=== PATIENT | female | born 1995 | race Caucasian/White ===

== ENCOUNTER 2023-09-18 13:35 | Emergency (ER) | payer BC ==
[2023-09-18 13:51] VITALS: BP 146/77; PULSE 80
[2023-09-18] MEDS: Lidocaine 1% with EPINEPHrine 1:100,000 10 ML MDV INJECT ONE (14:01)
[2023-09-18] MEDS: Ketorolac 30 MG/ML SDV IM ONE (14:02)
[2023-09-18] MEDS: Diphtheria,Pertussis(Acell),Tetanus Vaccine 0.5 ML Syringe IM ONE (14:03)
[2023-09-18] MEDS: Bacitracin Oint 1 GM U/D Packet TOP ONE (14:09)
== END 2023-09-18 14:35 | disposition home or self-care (01) ==
LOC: CC.ED 13:35
DX: S01.01XA Laceration without foreign body of scalp, initial encounter (principal); Z23 Encounter for immunization; W26.8XXA Contact with other sharp object(s), not elsewhere classified, initial encounter; Y92.511 Restaurant or cafe as the place of occurrence of the external cause; Y93.89 Activity, other specified; Y99.0 Civilian activity done for income or pay
CPT/HCPCS: 12002; 90471; 90715; 96372; 99282-25; 99283; J1885; J3490